=== PATIENT | male | born 1960 | race Caucasian/White ===

== ENCOUNTER → 2022-10-07 | Day surgery (SDC) | payer OTHER ==
[~2022-10-07] MED LIST: Iopamidol-M 200 41% 20 ML VIAL ONE; Lidocaine 1% PF 5 ML VIAL ONE
== END ==
LOC: CSHRAD 08:37
PROVIDERS: ATTEND Anesthesiology
DX: M54.16 Radiculopathy, lumbar region (principal); Z88.6 Allergy status to analgesic agent; Z88.0 Allergy status to penicillin
CPT/HCPCS: 62304; 72132; Q9966